=== PATIENT | male | born 1980 | race Two or more races ===

== ENCOUNTER → 2017-04-24 | Emergency (ER) | payer OTHER ==
[~2017-04-24] VITALS: Ht 177.8 cm; Wt 88.5 kg
== END | disposition home or self-care (01) ==
LOC: ER 09:34
DX: R10.32 Left lower quadrant pain (principal); N13.2 Hydronephrosis with renal and ureteral calculous obstruction

== ENCOUNTER 2017-04-29 10:08 | Outpatient (CLI) | payer OTHER | END 2017-04-29 10:19 | disposition home or self-care (01) | LOC: SONOGRAMA 10:08 → RAD 10:08 | DX: N20.0 Calculus of kidney (principal) ==

== ENCOUNTER 2017-05-02 10:18 | Outpatient (CLI) | payer OTHER | END 2017-05-02 10:24 | disposition home or self-care (01) | LOC: RAD 10:18 | DX: N20.1 Calculus of ureter (principal) ==